=== PATIENT | female | born 1960 | race African-American/Black ===

== ENCOUNTER 2018-06-28 16:20 | Inpatient (IN) | payer MEDICAID, OTHER ==
[~2018-06-28] VITALS: Ht 162.6 cm; Wt 127.0 kg
[2018-06-28] MEDS ORDERED: LABETALOL 5MG/ML SYR 20 MG/4 ML SYRINGE IV ONE (16:45)
[2018-06-28 17:04] LABS: PROTHROMBIN TIME 9.8 sec (9.1-11.1)
[2018-06-28 17:05] LABS: BASOPHILS % 1.1 % (0.0-2.0); EOSINOPHILS % 1.4 % (0.0-5.0); HEMATOCRIT. 40.2 % (36.0-48.0); HEMOGLOBIN. 12.8 g/dL (12.0-16.0); LYMPHOCYTES % 44.9 % (20.0-50.0); MEAN CORPUSCULAR HEMOGLOBIN 22.9 pg (28.0-32.0); MEAN CORPUSCULAR VOLUME 71.9 fL (81.0-99.0); MEAN PLATELET VOLUME 8.7 fl (7.4-10.4); MONOCYTES % 8.1 % (2.0-8.0); NEUTROPHILS % 44.5 % (40.0-76.0); PLATELET 338 x1000/uL (130-400); RED BLOOD CELL COUNT 5.59 mill/uL (4.2-5.4); RED CELL DISTRIBUTION WIDTH 14.9 % (11.6-14.6)
[2018-06-28 17:09] LABS: CHLORIDE 104 mEq/L (98-107)
[2018-06-28] MEDS ORDERED: MORPHINE SULFATE 2 MG/ML CPJ (NOT FOR IM USE) IV ONE (17:30)
[2018-06-28] MEDS ORDERED: ASPIRIN 81MG TABLET PO ONE (17:30)
[2018-06-28] MEDS ORDERED: ACETAMINOPHEN 325MG TABLET PO ONE (18:30)
[2018-06-28] MEDS ORDERED: AMLODIPINE 10MG TABLET PO SCH (22:45)
[2018-06-28] MEDS ORDERED: MORPHINE SULFATE 4 MG/ML CPJ (NOT FOR IM USE) IV PRN (22:45)
[2018-06-28] MEDS ORDERED: ONDANSETRON HCL 4MG/2ML INJ IV PRN (22:45)
[2018-06-28] MEDS ORDERED: HYDROCODONE/ACETAMINOPHEN 5/325MG TABLET PO PRN (22:45)
[2018-06-28] MEDS: CLONIDINE 0.1MG TABLET PO PRN (22:58)
[2018-06-29 03:40] VITALS: BP 167/86
[2018-06-29 04:00] VITALS: BP 167/86
[2018-06-29] MEDS ORDERED: GLIP10TA10 PO (04:21)
[2018-06-29] MEDS ORDERED: BENA20TA10 PO (04:21)
[2018-06-29] MEDS ORDERED: METF100092 PO (04:21)
[2018-06-29] MEDS ORDERED: ASPI-1159 PO (04:21)
[2018-06-29 07:59] VITALS: BP 173/92
[2018-06-29] MEDS: AMLODIPINE 10MG TABLET PO SCH (08:48)
[2018-06-29] MEDS: ASPIRIN 81MG EC TABLET PO SCH (08:48)
[2018-06-29] MEDS: METOPROLOL TARTRATE 25MG TABLET PO SCH ×2 (08:49→21:19)
[2018-06-29] MEDS ORDERED: GLIM4TAB2 MT (10:08)
[2018-06-29] MEDS ORDERED: BENA40TA9 MT (10:08)
[2018-06-29 10:26] LABS: BASOPHILS % 0.7 % (0.0-2.0); EOSINOPHILS % 0.5 % (0.0-5.0); HEMATOCRIT. 36.2 % (36.0-48.0); HEMOGLOBIN. 11.7 g/dL (12.0-16.0); LYMPHOCYTES % 24.7 % (20.0-50.0); MEAN CORPUSCULAR HEMOGLOBIN 22.9 pg (28.0-32.0); MEAN CORPUSCULAR VOLUME 70.7 fL (81.0-99.0); MEAN PLATELET VOLUME 9.1 fl (7.4-10.4); MONOCYTES % 8.7 % (2.0-8.0); NEUTROPHILS % 65.4 % (40.0-76.0); PLATELET 298 x1000/uL (130-400); RED BLOOD CELL COUNT 5.12 mill/uL (4.2-5.4); RED CELL DISTRIBUTION WIDTH 15.1 % (11.6-14.6)
[2018-06-29] MEDS ORDERED: DEXTROSE 50% WATER 50ML SYRINGE IV PRN (10:30)
[2018-06-29] MEDS: CLONIDINE 0.1MG TABLET PO PRN (10:52)
[2018-06-29] MEDS: LOSARTAN POTASSIUM 50 MG TABLET PO SCH (10:52)
[2018-06-29 10:53] LABS: CHLORIDE 103 mEq/L (98-107)
[2018-06-29 11:25] LABS: HDL CHOLESTEROL 51 mg/dL (40-59); LDL CHOLESTEROL 178 mg/dL (5-100)
[2018-06-29 12:11] VITALS: BP 159/83
[2018-06-29] MEDS: BLOOD SUGAR DIAGNOSTIC STRIP TEST SCH ×3 (12:23→21:22)
[2018-06-29] MEDS ORDERED: INSULIN LISPRO 100 UNITS/ML SUBCUT SCH (12:50)
[2018-06-29] MEDS: INSULIN LISPRO 100 UNITS/ML SUBCUT SCH ×3 (14:18→21:00)
[2018-06-29 16:08] VITALS: BP 161/85
[2018-06-29 20:00] VITALS: BP 162/82
[2018-06-30] VITALS: BP 149/83
[2018-06-30 04:00] VITALS: BP 156/78
[2018-06-30] MEDS: BLOOD SUGAR DIAGNOSTIC STRIP TEST SCH ×4 (07:20→20:42)
[2018-06-30 08:09] VITALS: BP 170/90
[2018-06-30] MEDS: INSULIN LISPRO 100 UNITS/ML SUBCUT SCH ×4 (10:01→20:41)
[2018-06-30] MEDS: ASPIRIN 81MG EC TABLET PO SCH (10:04)
[2018-06-30] MEDS: AMLODIPINE 10MG TABLET PO SCH (10:04)
[2018-06-30] MEDS: METOPROLOL TARTRATE 25MG TABLET PO SCH (10:04)
[2018-06-30] MEDS: LOSARTAN POTASSIUM 50 MG TABLET PO SCH (10:05)
[2018-06-30] MEDS ORDERED: LOSARTAN POTASSIUM 50 MG TABLET PO SCH (13:00)
[2018-06-30] MEDS ORDERED: METOPROLOL TARTRATE 25MG TABLET PO SCH (13:00)
[2018-06-30] MEDS: ACETAMINOPHEN 325MG TABLET PO PRN ×2 (13:26)
[2018-06-30] MEDS: CLOPIDOGREL 75MG TABLET PO SCH (13:27)
[2018-06-30] MEDS: ENOXAPARIN 30MG/0.3ML SYR SUBCUT SCH ×2 (13:29→22:07)
[2018-06-30 16:31] VITALS: BP 157/90
[2018-06-30] MEDS: HYDRALAZINE HCL 10MG TABLET PO SCH ×2 (18:44→22:00)
[2018-06-30 20:00] VITALS: BP 176/90
[2018-06-30] MEDS: CLONIDINE 0.1MG TABLET PO PRN (20:42)
[2018-06-30] MEDS: METOPROLOL TARTRATE 50MG TABLET PO SCH (20:42)
[2018-06-30] MEDS ORDERED: ATORVASTATIN CALCIUM 20MG TABLET PO SCH (21:00)
[2018-06-30 22:00] VITALS: BP 131/69
[2018-07-01] VITALS: BP 145/75
[2018-07-01 04:00] VITALS: BP 169/85
[2018-07-01] MEDS: CLONIDINE 0.1MG TABLET PO PRN (04:35)
[2018-07-01 06:30] VITALS: BP 150/75
[2018-07-01] MEDS: BLOOD SUGAR DIAGNOSTIC STRIP TEST SCH ×2 (06:38→13:04)
[2018-07-01] MEDS: HYDRALAZINE HCL 10MG TABLET PO SCH ×2 (06:38→13:09)
[2018-07-01] MEDS ORDERED: GUAIFENESIN 200MG/10ML SUGAR FREE UDC PO PRN (07:00)
[2018-07-01 08:01] VITALS: BP 126/60
[2018-07-01 08:36] VITALS: BP 125/59
[2018-07-01] MEDS: INSULIN LISPRO 100 UNITS/ML SUBCUT SCH ×2 (08:37→13:07)
[2018-07-01] MEDS: ASPIRIN 81MG EC TABLET PO SCH (08:38)
[2018-07-01] MEDS: METOPROLOL TARTRATE 50MG TABLET PO SCH (08:39)
[2018-07-01] MEDS: AMLODIPINE 10MG TABLET PO SCH (08:39)
[2018-07-01] MEDS: CLOPIDOGREL 75MG TABLET PO SCH (08:39)
[2018-07-01] MEDS: ENOXAPARIN 30MG/0.3ML SYR SUBCUT SCH (08:41)
[2018-07-01] MEDS ORDERED: LOSARTAN POTASSIUM 100 MG TABLET PO SCH (09:00)
[2018-07-01 12:20] VITALS: BP 120/67
== END 2018-07-01 16:10 | disposition home or self-care (01) | DRG 45 ==
LOC: ER 17:40 → 6WST 18:01 → EDBEDREQ 18:03 → ENRESERV 06-29 01:50
PROVIDERS: ADMIT Hospitalist; ATTEND Hospitalist
DX: I63.9 Cerebral infarction, unspecified (principal); I67.4 Hypertensive encephalopathy; E11.9 Type 2 diabetes mellitus without complications; I10 Essential (primary) hypertension; Z79.4 Long term (current) use of insulin
CPT/HCPCS: 36415; 70551; 71045; 80061; 82962; 84484; 93005; 93880; 96374; 97116; 97162; 99291; J1650; J1815; J2405; J3490

== ENCOUNTER 2021-04-29 20:34 | Emergency (ER) | payer OTHER ==
[~2021-04-29] VITALS: Ht 165.1 cm; Wt 100.0 kg
[~2021-04-29 20:34] MED LIST: ASPI-1497 PO; BENA40TA9 MT; GLIM4TAB36 MT; METF100092 PO
[2021-04-29] MEDS ORDERED: MORPHINE SULFATE 4 MG/ML CPJ (NOT FOR IM USE) IV STA (21:00)
[2021-04-29] MEDS ORDERED: LABETALOL 5MG/ML SYR 20 MG/4 ML SYRINGE IV ONE (21:00)
[2021-04-29 21:25] LABS: BASOPHILS % 0.6 % (0.0-2.0); HEMATOCRIT. 37.8 % (36.0-48.0); LYMPHOCYTES % 15.9 % (20.0-50.0); MEAN CORPUSCULAR VOLUME 69.5 fL (81.0-99.0); MEAN PLATELET VOLUME 9.1 fl (7.4-10.4); MONOCYTES % 7.8 % (2.0-8.0); NEUTROPHILS % 75.7 % (40.0-76.0); PLATELET 369 x1000/uL (130-400); RED BLOOD CELL COUNT 5.44 mill/uL (4.2-5.4)
[2021-04-29] MEDS ORDERED: LORAZEPAM 2MG/ML CPJ IV ONE (21:30)
[2021-04-29] MEDS ORDERED: METOCLOPRAMIDE HCL 10 MG in SODIUM CHLORIDE 0.9% 100 ML IV NR (21:30)
[2021-04-29] MEDS ORDERED: METOCLOPRAMIDE HCL 10MG/2ML VIAL IV ONE (21:30)
[2021-04-29 21:31] LABS: CHLORIDE 100 mEq/L (98-107)
[2021-04-29 21:35] LABS: ETHANOL BLOOD < 10 mg/dL
[2021-04-29] MEDS ORDERED: METOCLOPRAMIDE HCL 10MG/2ML VIAL ONE (21:40)
[2021-04-29 22:21] LABS: PLATELET ESTIMATE NORMAL
[2021-04-30 01:23] VITALS: BP 184/94
== END 2021-04-30 01:47 | disposition home or self-care (01) ==
LOC: ER 20:43
DX: R51.9 Headache, unspecified (principal); E11.65 Type 2 diabetes mellitus with hyperglycemia; I10 Essential (primary) hypertension
CPT/HCPCS: 36415; 70450; 71045; 80053; 80320; 82140; 82962; 83605; 83880; 84484; 85025; 86850; 86900; 86901; 93005; 96365; 96375; 99285; J2060; J2765; J7050; J2270; J3490; G0480